=== PATIENT | male | born 1935 | race Two or more races ===

== ENCOUNTER 2023-01-03 13:39 | Inpatient (IN) | payer MEDICARE, OTHER ==
[~2023-01-03] VITALS: Ht 170.2 cm; Wt 79.4 kg
[2023-01-03] MEDS ORDERED: IV NS 0.9% 1,000 ML BAG IV ONE (14:30)
[2023-01-03 15:05] LABS: HEMATOCRIT 37 % (39-51); HEMOGLOBIN 12.3 g/dL (13.5-17.5); MEAN CORPUSCULAR HEMOGLOBIN 30 PG (26.0-33.0); MEAN CORPUSCULAR HGB CONC 33 g/dl (31.0-36.0); MEAN CORPUSCULAR VOLUME 90 fL (80-96); RED BLOOD CELL COUNT(AUTO) 4.12 MIL/uL (4.5-6.0); WHITE BLOOD COUNT (AUTO) 2.7 K/uL (4.3-11.0)
[2023-01-03 15:06] LABS: BASOPHILS % (AUTO) 0.3 % (0.0-2.0); EOSINOPHILS % (AUTO) 0.3 % (0.0-6.0); LYMPHOCYTES # (AUTO) 0.7 K/uL (0.8-4.8); LYMPHOCYTES % (AUTO) 26.7 % (20.0-44.0); MONOCYTES # (AUTO) 0.7 K/uL (0.1-1.30); MONOCYTES % (AUTO) 27.5 % (2.0-12.0); NEUTROPHILS # (AUTO) 1.2 K/uL (1.8-8.9); NEUTROPHILS % (AUTO) 45.2 % (43.0-81.0); PLATELET COUNT (AUTO) 112 K/uL (150-450)
[2023-01-03 15:17] LABS: LACTIC ACID 2.1 mmol/L (0.4-2.0)
[2023-01-03 15:19] LABS: THYROID STIMULATING HORMONE 0.255 uIU/mL (0.358-3.74)
[2023-01-03 15:29] LABS: CALCIUM, SERUM 9.3 mg/dL (8.5-10.1); CARBON DIOXIDE 27 mmol/L (21-32); CHLORIDE 105 mmol/L (98-107); CREATININE 0.9 mg/dL (0.6-1.3); GLUCOSE 202 mg/dL (74-106); POTASSIUM 3.9 mmol/L (3.5-5.1); SODIUM SERUM 139 mmol/L (136-145); UREA NITROGEN, BLOOD 12 mg/dL (7-18)
[2023-01-03] MEDS ORDERED: CEFEPIME 2 GM in IV D5W 50 ML IV ONE (15:30)
[2023-01-03] MEDS ORDERED: VANCOMYCIN 1 GM in IV D5W 250 ML IV ONE (15:30)
[2023-01-03 15:33] LABS: ALCOHOL, BLOOD < 3 mg/dL (0-10)
[2023-01-03 15:40] LABS: INR 1.17 (0.91-1.10); PARTIAL THROMBOPLASTIN TIME 32.3 SEC (24.3-34.3); PROTHROMBIN TIME 12.2 SECS (9.2-11.1)
[2023-01-03] MEDS ORDERED: FAMO40TA7 PO (15:55)
[2023-01-03] MEDS ORDERED: CHOL100043 PO (15:55)
[2023-01-03] MEDS ORDERED: ACET-868 PO ×2 (15:55)
[2023-01-03] MEDS ORDERED: FERR325T23 PO (15:55)
[2023-01-03] MEDS ORDERED: MAGN400O6 PO (15:55)
[2023-01-03] MEDS ORDERED: ATOR20TA PO (15:55)
[2023-01-03] MEDS ORDERED: OMEG1CAP40 PO (15:55)
[2023-01-03] MEDS ORDERED: DUTA0.5C37 PO (15:55)
[2023-01-03] MEDS ORDERED: MIRT-121 PO (15:55)
[2023-01-03] MEDS ORDERED: TRAM50TA2 PO (15:55)
[2023-01-03] MEDS ORDERED: MULT-213 PO (15:55)
[2023-01-03] MEDS ORDERED: DONE10TA11 PO (15:55)
[2023-01-03] MEDS ORDERED: CARV6.25 PO (15:55)
[2023-01-03] MEDS ORDERED: MEMA10TA PO (15:55)
[2023-01-03] MEDS ORDERED: BISA-79 PO (15:55)
[2023-01-03] MEDS ORDERED: TAMS-12 PO (15:55)
[2023-01-03] MEDS ORDERED: DOCU100T2 PO (15:55)
[2023-01-03] MEDS ORDERED: OLAN7.5T3 PO (15:55)
[2023-01-03] MEDS ORDERED: DIVA125C2 PO (15:55)
[2023-01-03] MEDS ORDERED: BISA10SU11 RC (15:55)
[2023-01-03] MEDS ORDERED: NA P133E RC (15:55)
[2023-01-03] MEDS ORDERED: CEFEPIME 2 GM in IV D5W 100 ML IV ONE (16:00)
[2023-01-03 16:12] LABS: APPEARANCE,URINE CLEAR (CLEAR); BILIRUBIN,URINE NEGATIVE (NEGATIVE); BLOOD, URINE NEGATIVE Ery/uL (NEGATIVE); COLOR,URINE YELLOW (YELLOW); KETONES,URINE NEGATIVE (NEGATIVE); LEUKOCYTE ESTERASE ,URINE 1+ (NEGATIVE); NITRITE, URINE NEGATIVE (NEGATIVE); PH,URINE 6.5 (5.0-8.0); PROTEIN,URINE NEGATIVE (NEGATIVE); UGLUCOSE NEGATIVE (NEGATIVE)
[2023-01-03] MEDS ORDERED: IV NS 0.9% 500 ML BAG IV ONE (16:30)
[2023-01-03 16:35] LABS: AMPHETAMINE, URINE NEGATIVE (NEGATIVE); BARBITURATE, URINE NEGATIVE (NEGATIVE); BENZODIAZEPINE, URINE NEGATIVE (NEGATIVE); CANNABINOID, URINE NEGATIVE (NEGATIVE); COCCAINE, URINE NEGATIVE (NEGATIVE); OPIATE, URINE NEGATIVE (NEGATIVE); PHENCYCLIDINE SCREEN,URINE NEGATIVE (NEGATIVE)
[2023-01-03 17:21] LABS: ADD URINE CULTURE YES; BACTERIA,URINE Rare /HPF (None Seen); RBC,URINE 0-2 /HPF (0-2); SQUAMOUS EPITHELIAL CELL,UR None Seen /HPF (None Seen)
[2023-01-03] MEDS ORDERED: MAG HYDROX/AL HYDROX/SIMETH 30 ML UDC PO PRN (17:30)
[2023-01-03] MEDS ORDERED: NA PHOS,M-B/NA PHOS,DI-BA 1 EA ENEMA RC PRN (17:30)
[2023-01-03] MEDS ORDERED: ONDANSETRON HCL/PF 4 MG/2 ML VIAL IVP PRN (17:30)
[2023-01-03] MEDS ORDERED: TRAMADOL HCL 50 MG TABLET PO PRN (17:30)
[2023-01-03] MEDS ORDERED: MAGNESIUM HYDROXIDE 30 ML UDC PO PRN ×2 (17:30)
[2023-01-03] MEDS ORDERED: Z GUARD REMEDY 4 OZ OINT TP PRN (17:30)
[2023-01-03] MEDS ORDERED: ENOXAPARIN SODIUM 30 MG/0.3 ML DISP.SYRIN SQ SCH (17:30)
[2023-01-03] MEDS ORDERED: BISACODYL SUPP (10 MG) 10 MG/SUPP.RECT SUPP.RECT RC PRN (17:30)
[2023-01-03] MEDS ORDERED: ACETAMINOPHEN 325 MG TABLET PO PRN ×2 (17:30)
[2023-01-03 17:59] LABS: LYMPHOCYTES % (MANUAL) 32 % (16-48); MONOCYTES % (MANUAL) 23 % (0-11.0); NEUTROPHILS % (MANUAL) 45 (42-76); PLATELET ESTIMATE DECREASED
[2023-01-03] MEDS ORDERED: OLANZAPINE 2.5 MG TABLET PO SCH (18:00)
[2023-01-03 19:01] LABS: BILIRUBIN,DIRECT 0.1 mg/dL (0.0-0.2); BILIRUBIN,TOTAL 0.3 mg/dL (0.2-1.0)
[2023-01-03 19:24] LABS: LACTIC ACID REFLEX 0.7 mmol/L (0.4-1.9)
[2023-01-03 20:00] VITALS: BP 126/65; TEMP 97.8; O2SAT 98
[2023-01-03] MEDS: DOCUSATE SODIUM 100 MG CAPSULE PO SCH (21:23)
[2023-01-03] MEDS: ENOXAPARIN SODIUM 40 MG/0.4 ML DISP.SYRIN SQ SCH (21:24)
[2023-01-03] MEDS: OLANZAPINE 2.5 MG TABLET PO SCH (21:26)
[2023-01-03] MEDS: TAMSULOSIN 0.4 MG CAP.SR.24H PO SCH (21:27)
[2023-01-04] MEDS: IV NS 0.9% 1,000 ML IV PRN ×2 (00:27→17:10)
[2023-01-04 02:00] VITALS: BP 133/71; TEMP 97.4; O2SAT 93
[2023-01-04 04:00] VITALS: BP 120/67; TEMP 98; O2SAT 97
[2023-01-04 08:00] VITALS: BP 172/85; TEMP 98.2; O2SAT 97
[2023-01-04 08:39] LABS: BASOPHILS % (AUTO) 0.5 % (0.0-2.0); EOSINOPHILS % (AUTO) 0.6 % (0.0-6.0); HEMATOCRIT 38 % (39-51); HEMOGLOBIN 12.4 g/dL (13.5-17.5); LYMPHOCYTES # (AUTO) 0.7 K/uL (0.8-4.8); LYMPHOCYTES % (AUTO) 36.8 % (20.0-44.0); MEAN CORPUSCULAR HEMOGLOBIN 30 PG (26.0-33.0); MEAN CORPUSCULAR HGB CONC 33 g/dl (31.0-36.0); MEAN CORPUSCULAR VOLUME 90 fL (80-96); MONOCYTES # (AUTO) 0.7 K/uL (0.1-1.30); MONOCYTES % (AUTO) 35.9 % (2.0-12.0); NEUTROPHILS # (AUTO) 0.5 K/uL (1.8-8.9); NEUTROPHILS % (AUTO) 26.2 % (43.0-81.0); PLATELET COUNT (AUTO) 108 K/uL (150-450); RED BLOOD CELL COUNT(AUTO) 4.18 MIL/uL (4.5-6.0); RED CELL DISTRIBUTION WIDTH 14.1 % (11.5-15.0)
[2023-01-04 08:50] LABS: CALCIUM, SERUM 8.9 mg/dL (8.5-10.1); CARBON DIOXIDE 28 mmol/L (21-32); CHLORIDE 108 mmol/L (98-107); CREATININE 0.7 mg/dL (0.6-1.3); GLUCOSE 120 mg/dL (74-106); PHOSPHORUS 2.9 mg/dL (2.5-4.9); POTASSIUM 3.3 mmol/L (3.5-5.1); SODIUM SERUM 144 mmol/L (136-145); UREA NITROGEN, BLOOD 7 mg/dL (7-18)
[2023-01-04] MEDS: OLANZAPINE 2.5 MG TABLET PO SCH ×2 (10:20→21:10)
[2023-01-04] MEDS: MIRTAZAPINE 15 MG TABLET PO SCH ×2 (10:20→17:03)
[2023-01-04] MEDS: DIVALPROEX SODIUM 125 MG CAP.SPRINK PO SCH ×3 (10:21→17:02)
[2023-01-04] MEDS: DUTASTERIDE (0.5 MG) 0.5 MG CAPSULE PO SCH (10:21)
[2023-01-04] MEDS: DONEPEZIL 5 MG TABLET PO SCH (10:21)
[2023-01-04] MEDS: MEMANTINE HCL 5 MG TABLET PO SCH (10:22)
[2023-01-04] MEDS: FAMOTIDINE (20 MG) 20 MG TABLET PO SCH (10:22)
[2023-01-04] MEDS: DOCUSATE SODIUM 100 MG CAPSULE PO SCH ×2 (10:22→21:10)
[2023-01-04] MEDS: FERROUS SULFATE (325 MG) 325 MG/TAB TABLET PO SCH ×2 (10:22→17:02)
[2023-01-04] MEDS: CARVEDILOL 6.25 MG TABLET PO SCH ×2 (10:23→17:03)
[2023-01-04] MEDS ORDERED: POTASSIUM CHLORIDE 20 MEQ TAB.PRT.SR PO SCH (10:30)
[2023-01-04 12:55] LABS: BASOPHILS % (MANUAL) 0 % (0.0-2.0); EOSINOPHILS % (MANUAL) 0 % (0-4); LYMPHOCYTES % (MANUAL) 39 % (16-48); MONOCYTES % (MANUAL) 30 % (0-11.0); NEUTROPHILS % (MANUAL) 31 (42-76)
[2023-01-04 12:56] LABS: ANISOCYTOSIS 1+; PLATELET ESTIMATE DECREASED
[2023-01-04 16:00] VITALS: BP 127/65; TEMP 97.8; O2SAT 94
[2023-01-04] MEDS: CEFTRIAXONE 1 G in IV D5W 50 ML IV SCH (16:48)
[2023-01-04 18:55] VITALS: BP 127/65; TEMP 97.8; O2SAT 97
[2023-01-04 20:00] VITALS: BP 123/71; TEMP 98.6; O2SAT 95
[2023-01-04] MEDS: ENOXAPARIN SODIUM 40 MG/0.4 ML DISP.SYRIN SQ SCH (21:09)
[2023-01-04] MEDS: TAMSULOSIN 0.4 MG CAP.SR.24H PO SCH (21:10)
[2023-01-05] MEDS: IV NS 0.9% 1,000 ML IV PRN (06:56)
[2023-01-05 07:30] LABS: BASOPHILS % (AUTO) 0.4 % (0.0-2.0); EOSINOPHILS % (AUTO) 0.4 % (0.0-6.0); HEMATOCRIT 36 % (39-51); HEMOGLOBIN 12.1 g/dL (13.5-17.5); LYMPHOCYTES # (AUTO) 0.8 K/uL (0.8-4.8); LYMPHOCYTES % (AUTO) 41.4 % (20.0-44.0); MEAN CORPUSCULAR HEMOGLOBIN 30 PG (26.0-33.0); MEAN CORPUSCULAR HGB CONC 34 g/dl (31.0-36.0); MEAN CORPUSCULAR VOLUME 90 fL (80-96); MONOCYTES # (AUTO) 0.7 K/uL (0.1-1.30); MONOCYTES % (AUTO) 35.8 % (2.0-12.0); NEUTROPHILS # (AUTO) 0.4 K/uL (1.8-8.9); PLATELET COUNT (AUTO) 98 K/uL (150-450); RED BLOOD CELL COUNT(AUTO) 3.99 MIL/uL (4.5-6.0); RED CELL DISTRIBUTION WIDTH 14.1 % (11.5-15.0)
[2023-01-05 07:42] LABS: WHITE BLOOD COUNT (AUTO) 1.9 K/uL (4.3-11.0)
[2023-01-05] MEDS: FAMOTIDINE (20 MG) 20 MG TABLET PO SCH (07:46)
[2023-01-05 08:00] VITALS: BP 138/81; TEMP 98.1; O2SAT 96
[2023-01-05 08:01] LABS: CALCIUM, SERUM 8.6 mg/dL (8.5-10.1); CREATININE 0.6 mg/dL (0.6-1.3); POTASSIUM 3.5 mmol/L (3.5-5.1)
[2023-01-05] MEDS: DIVALPROEX SODIUM 125 MG CAP.SPRINK PO SCH ×3 (08:53→17:12)
[2023-01-05] MEDS: DOCUSATE SODIUM 100 MG CAPSULE PO SCH ×2 (08:55→21:07)
[2023-01-05] MEDS: DONEPEZIL 5 MG TABLET PO SCH (08:57)
[2023-01-05] MEDS: MEMANTINE HCL 5 MG TABLET PO SCH (08:58)
[2023-01-05] MEDS: OLANZAPINE 2.5 MG TABLET PO SCH ×2 (09:00→21:06)
[2023-01-05] MEDS: FERROUS SULFATE (325 MG) 325 MG/TAB TABLET PO SCH ×2 (09:00→17:12)
[2023-01-05] MEDS: MIRTAZAPINE 15 MG TABLET PO SCH ×2 (09:01→17:11)
[2023-01-05] MEDS: CARVEDILOL 6.25 MG TABLET PO SCH ×2 (09:03→17:12)
[2023-01-05] MEDS: DUTASTERIDE (0.5 MG) 0.5 MG CAPSULE PO SCH (09:04)
[2023-01-05 10:00] LABS: IRON, SERUM 45 ug/dl (50-175); TOTAL IRON BINDING CAPACITY 166 ug/dl (250-450)
[2023-01-05 11:23] LABS: ANISOCYTOSIS 1+; BASOPHILS % (MANUAL) 0 % (0.0-2.0); EOSINOPHILS % (MANUAL) 0 % (0-4); LYMPHOCYTES % (MANUAL) 42 % (16-48); MONOCYTES % (MANUAL) 29 % (0-11.0); NEUTROPHILS % (MANUAL) 29 (42-76); PLATELET ESTIMATE DECREASED
[2023-01-05] MEDS: CEFTRIAXONE 1 G in IV D5W 50 ML IV SCH (15:12)
[2023-01-05 16:00] VITALS: BP 116/67; TEMP 98; O2SAT 96
[2023-01-05] MEDS: TAMSULOSIN 0.4 MG CAP.SR.24H PO SCH (21:07)
[2023-01-05] MEDS: ENOXAPARIN SODIUM 40 MG/0.4 ML DISP.SYRIN SQ SCH (21:08)
[2023-01-06] MEDS: FAMOTIDINE (20 MG) 20 MG TABLET PO SCH (07:53)
[2023-01-06] MEDS ORDERED: ASCORBIC ACID 500 MG TABLET PO SCH (09:00)
[2023-01-06] MEDS ORDERED: MULTIVITAMINS,THERAGRAN 1 UDTAB TABLET PO SCH (09:00)
[2023-01-06] MEDS ORDERED: ZINC SULFATE 220 MG CAPSULE PO SCH (09:00)
[2023-01-06] MEDS: OLANZAPINE 2.5 MG TABLET PO SCH (09:04)
[2023-01-06] MEDS: DONEPEZIL 5 MG TABLET PO SCH (09:04)
[2023-01-06] MEDS: MEMANTINE HCL 5 MG TABLET PO SCH (09:05)
[2023-01-06] MEDS: MIRTAZAPINE 15 MG TABLET PO SCH (09:05)
[2023-01-06] MEDS: FERROUS SULFATE (325 MG) 325 MG/TAB TABLET PO SCH (09:06)
[2023-01-06] MEDS: DIVALPROEX SODIUM 125 MG CAP.SPRINK PO SCH ×2 (09:07→12:08)
[2023-01-06] MEDS: DUTASTERIDE (0.5 MG) 0.5 MG CAPSULE PO SCH (09:08)
[2023-01-06] MEDS: DOCUSATE SODIUM 100 MG CAPSULE PO SCH (09:08)
[2023-01-06 09:18] VITALS: BP 137/92
[2023-01-06] MEDS: CARVEDILOL 6.25 MG TABLET PO SCH (09:18)
== END 2023-01-06 13:28 | DRG 689 ==
LOC: ER 13:39 → TELE1 16:27 → MEDSG1 19:50 → MED 01-04 00:07
PROVIDERS: ADMIT Internal Medicine; ATTEND Internal Medicine
DX: N39.0 Urinary tract infection, site not specified (principal); G93.41 Metabolic encephalopathy; J98.11 Atelectasis; E87.20 Acidosis, unspecified; E86.0 Dehydration; I10 Essential (primary) hypertension; N40.0 Benign prostatic hyperplasia without lower urinary tract symptoms; F03.90 Unspecified dementia, unspecified severity, without behavioral disturbance, psychotic disturbance, mood disturbance, and anxiety; D64.9 Anemia, unspecified; D72.819 Decreased white blood cell count, unspecified; E78.5 Hyperlipidemia, unspecified; F20.9 Schizophrenia, unspecified; K21.9 Gastro-esophageal reflux disease without esophagitis
CPT/HCPCS: 36415; 70450-TC; 71045-TC; 80048-TC; 81001; 82247-TC; 82248-TC; 83540-TC; 83605-TC; 83735-TC; 83880; 84100-TC; 84443-TC; 84484-TC; 85025-TC; 85730-TC; 87040-TC; 87081-TC; 87086-TC; A4223; G0378; G0480; J0692; J0696; J1650; J3370; J7030; J7040; J7060

== ENCOUNTER 2023-08-10 20:09 | Inpatient (IN) | payer MEDICARE, OTHER ==
[~2023-08-10] VITALS: Ht 152.4 cm; Wt 80.7 kg
[~2023-08-10 20:09] MED LIST: ACET-868 PO; ATOR20TA PO; BISA-79 PO; BISA10SU11 RC; CARV6.25 PO; CHOL100043 PO; DIVA125C2 PO; DOCU100T2 PO; DONE10TA11 PO; DUTA0.5C37 PO; FAMO40TA7 PO; FERR325T23 PO; MAGN400O6 PO; MEMA10TA PO; MIRT-121 PO; MULT-213 PO; NA P133E RC; OLAN7.5T3 PO; OMEG1CAP40 PO; TAMS-12 PO; TRAM50TA2 PO
[2023-08-10] MEDS: IV NS 0.9% 1,000 ML BAG IV ONE (20:49)
[2023-08-10 20:53] LABS: BASOPHILS % (AUTO) 0.3 % (0.0-2.0); EOSINOPHILS % (AUTO) 0.5 % (0.0-6.0); HEMATOCRIT 38 % (39-51); HEMOGLOBIN 12.8 g/dL (13.5-17.5); LYMPHOCYTES % (AUTO) 32.1 % (20.0-44.0); MEAN CORPUSCULAR HEMOGLOBIN 31 PG (26.0-33.0); MEAN CORPUSCULAR HGB CONC 34 g/dl (31.0-36.0); MEAN CORPUSCULAR VOLUME 90 fL (80-96); MONOCYTES % (AUTO) 32.5 % (2.0-12.0); NEUTROPHILS % (AUTO) 34.6 % (43.0-81.0); PLATELET COUNT (AUTO) 89 K/uL (150-450)
[2023-08-10 21:01] LABS: APPEARANCE,URINE CLEAR (CLEAR); BILIRUBIN,URINE NEGATIVE (NEGATIVE); BLOOD, URINE NEGATIVE Ery/uL (NEGATIVE); COLOR,URINE YELLOW (YELLOW); KETONES,URINE NEGATIVE (NEGATIVE); LEUKOCYTE ESTERASE ,URINE NEGATIVE (NEGATIVE); NITRITE, URINE NEGATIVE (NEGATIVE); PROTEIN,URINE NEGATIVE (NEGATIVE); UGLUCOSE NEGATIVE (NEGATIVE)
[2023-08-10 21:07] LABS: SERUM AMMONIA 18 umol/L (11-32)
[2023-08-10 21:07] LABS: AMPHETAMINE, URINE NEGATIVE (NEGATIVE); BARBITURATE, URINE NEGATIVE (NEGATIVE); BENZODIAZEPINE, URINE NEGATIVE (NEGATIVE); CANNABINOID, URINE NEGATIVE (NEGATIVE); COCCAINE, URINE NEGATIVE (NEGATIVE); OPIATE, URINE NEGATIVE (NEGATIVE); PHENCYCLIDINE SCREEN,URINE NEGATIVE (NEGATIVE)
[2023-08-10 21:10] LABS: INR 1.13 (0.91-1.10); PARTIAL THROMBOPLASTIN TIME 32.3 SEC (24.3-34.3); PROTHROMBIN TIME 11.9 SECS (9.2-11.1)
[2023-08-10 21:12] LABS: ALANINE AMINOTRANSFERASE 13 U/L (12-78); ALCOHOL, BLOOD < 3 mg/dL (0-10); ALKALINE PHOSPHATASE 59 U/L (46-116); ASPARTATE AMINOTRANSFERASE 10 U/L (15-37); BILIRUBIN,DIRECT 0.1 mg/dL (0.0-0.2); BILIRUBIN,TOTAL 0.3 mg/dL (0.2-1.0); CALCIUM, SERUM 9.1 mg/dL (8.5-10.1); CARBON DIOXIDE 29 mmol/L (21-32); CHLORIDE 106 mmol/L (98-107); CREATININE 1.1 mg/dL (0.6-1.3); GLUCOSE 127 mg/dL (74-106); POTASSIUM 3.7 mmol/L (3.5-5.1); SODIUM SERUM 140 mmol/L (136-145); UREA NITROGEN, BLOOD 16 mg/dL (7-18)
[2023-08-10 21:19] LABS: BAND % (MANUAL) 1 % (0.0-5.0); EOSINOPHILS % (MANUAL) 1 % (0-4); LYMPHOCYTES % (MANUAL) 29 % (16-48); MONOCYTES % (MANUAL) 29 % (0-11.0); NEUTROPHILS % (MANUAL) 40 (42-76); PLATELET ESTIMATE DECREASED
[2023-08-10 21:20] LABS: THYROID STIMULATING HORMONE 0.918 uIU/mL (0.358-3.74)
[2023-08-10 21:24] LABS: SALICYLATE 1.2 mg/dL (2.8-20.0)
[2023-08-10 22:00] VITALS: BP 166/71; TEMP 98.2; O2SAT 97
[2023-08-10] MEDS ORDERED: ONDANSETRON HCL/PF 4 MG/2 ML VIAL IVP PRN (22:00)
[2023-08-10] MEDS ORDERED: MORPHINE SULFATE INJ 2 MG/ML DISP.SYRIN IV PRN (22:00)
[2023-08-10] MEDS ORDERED: ACETAMINOPHEN 325 MG TABLET PO PRN (22:00)
[2023-08-10] MEDS ORDERED: hydrALAZINE HCL IV 20 MG VIAL IV PRN (22:00)
[2023-08-10] MEDS: ATORVASTATIN 10 MG TABLET PO SCH (22:31)
[2023-08-10] MEDS: TAMSULOSIN 0.4 MG CAP.SR.24H PO SCH (22:31)
[2023-08-10] MEDS: OLANZAPINE 5 MG TABLET PO SCH (22:35)
[2023-08-11] VITALS: BP 149/68; TEMP 98; O2SAT 97
[2023-08-11 04:00] VITALS: BP 121/55; TEMP 98; O2SAT 97
[2023-08-11 06:36] LABS: BASOPHILS % (AUTO) 0.3 % (0.0-2.0); EOSINOPHILS % (AUTO) 0.7 % (0.0-6.0); HEMATOCRIT 38 % (39-51); HEMOGLOBIN 12.9 g/dL (13.5-17.5); LYMPHOCYTES # (AUTO) 0.8 K/uL (0.8-4.8); LYMPHOCYTES % (AUTO) 34.6 % (20.0-44.0); MEAN CORPUSCULAR HEMOGLOBIN 31 PG (26.0-33.0); MEAN CORPUSCULAR HGB CONC 34 g/dl (31.0-36.0); MEAN CORPUSCULAR VOLUME 91 fL (80-96); MONOCYTES # (AUTO) 0.7 K/uL (0.1-1.30); MONOCYTES % (AUTO) 31.4 % (2.0-12.0); NEUTROPHILS # (AUTO) 0.8 K/uL (1.8-8.9); PLATELET COUNT (AUTO) 81 K/uL (150-450); RED BLOOD CELL COUNT(AUTO) 4.21 MIL/uL (4.5-6.0); RED CELL DISTRIBUTION WIDTH 15.1 % (11.5-15.0); WHITE BLOOD COUNT (AUTO) 2.3 K/uL (4.3-11.0)
[2023-08-11 06:50] LABS: ALBUMIN 2.8 g/dL (3.4-5.0); BILIRUBIN,TOTAL 0.3 mg/dL (0.2-1.0); CALCIUM, SERUM 8.8 mg/dL (8.5-10.1); CREATININE 0.8 mg/dL (0.6-1.3); PHOSPHORUS 3.8 mg/dL (2.5-4.9); POTASSIUM 3.6 mmol/L (3.5-5.1); TOTAL PROTEIN, SERUM 6.6 g/dL (6.4-8.2)
[2023-08-11] MEDS: DOCUSATE SODIUM LIQ 100 MG/10 ML UDC PO SCH (08:45)
[2023-08-11] MEDS: POLYETHYLENE GLYCOL 3350 17 GM POWD.PACK PO SCH (08:45)
[2023-08-11] MEDS: DONEPEZIL 5 MG TABLET PO SCH (08:45)
[2023-08-11] MEDS: CHOLECALCIFEROL 1,000 UNIT TABLET (VIT D3) PO SCH (08:47)
[2023-08-11] MEDS: MIRTAZAPINE 15 MG TABLET PO SCH (08:47)
[2023-08-11] MEDS: MEMANTINE HCL 5 MG TABLET PO SCH (08:47)
[2023-08-11] MEDS: DIVALPROEX SODIUM 125 MG CAP.SPRINK PO SCH (08:47)
[2023-08-11] MEDS: DUTASTERIDE (0.5 MG) 0.5 MG CAPSULE PO SCH (08:48)
[2023-08-11] MEDS: CARVEDILOL 6.25 MG TABLET PO SCH (08:48)
[2023-08-11] MEDS: FERROUS SULFATE (325 MG) 325 MG/TAB TABLET PO SCH (08:48)
[2023-08-11] MEDS ORDERED: ASCO-352 PO (10:27)
[2023-08-11] MEDS ORDERED: NALO4SPR BNOSTRILS (10:27)
[2023-08-11] MEDS ORDERED: ZINC220C6 PO (10:27)
[2023-08-11] MEDS ORDERED: BLOO-668 IN (10:27)
[2023-08-11] MEDS: HEPARIN SODIUM, PORCINE 5000 UNITS/1 ML VIAL SQ SCH (10:57)
[2023-08-11 11:05] LABS: ANISOCYTOSIS 1+; BASOPHILS % (MANUAL) 0 % (0.0-2.0); EOSINOPHILS % (MANUAL) 0 % (0-4); LYMPHOCYTES % (MANUAL) 40 % (16-48); MONOCYTES % (MANUAL) 26 % (0-11.0); NEUTROPHILS % (MANUAL) 34 (42-76); PLATELET ESTIMATE DECREASED
[2023-08-11 11:42] VITALS: BP 148/71; TEMP 97.9; O2SAT 95
[2023-08-11 16:00] VITALS: BP 156/84; TEMP 98.2
[2023-08-11 20:00] VITALS: BP 138/81; TEMP 98.4; O2SAT 96
[2023-08-12] VITALS: BP 140/83; TEMP 97.3; O2SAT 95
[2023-08-12 06:52] LABS: ALBUMIN 3.1 g/dL (3.4-5.0); BILIRUBIN,TOTAL 0.4 mg/dL (0.2-1.0); CALCIUM, SERUM 9.1 mg/dL (8.5-10.1); CREATININE 0.7 mg/dL (0.6-1.3); MAGNESIUM 2.2 mg/dL (1.8-2.4); PHOSPHORUS 3.5 mg/dL (2.5-4.9); POTASSIUM 3.5 mmol/L (3.5-5.1); TOTAL PROTEIN, SERUM 7.1 g/dL (6.4-8.2)
[2023-08-12 06:54] LABS: BASOPHILS % (AUTO) 0.2 % (0.0-2.0); EOSINOPHILS % (AUTO) 0.6 % (0.0-6.0); HEMATOCRIT 40 % (39-51); HEMOGLOBIN 13.3 g/dL (13.5-17.5); LYMPHOCYTES % (AUTO) 36.1 % (20.0-44.0); MEAN CORPUSCULAR HEMOGLOBIN 30 PG (26.0-33.0); MEAN CORPUSCULAR HGB CONC 34 g/dl (31.0-36.0); MEAN CORPUSCULAR VOLUME 91 fL (80-96); MONOCYTES # (AUTO) 0.9 K/uL (0.1-1.30); MONOCYTES % (AUTO) 33.6 % (2.0-12.0); NEUTROPHILS # (AUTO) 0.8 K/uL (1.8-8.9); NEUTROPHILS % (AUTO) 29.5 % (43.0-81.0); PLATELET COUNT (AUTO) 92 K/uL (150-450); RED BLOOD CELL COUNT(AUTO) 4.38 MIL/uL (4.5-6.0); RED CELL DISTRIBUTION WIDTH 15.1 % (11.5-15.0); WHITE BLOOD COUNT (AUTO) 2.7 K/uL (4.3-11.0)
[2023-08-12 08:00] VITALS: BP 139/77; TEMP 97.9; O2SAT 96
[2023-08-12 11:59] LABS: ANISOCYTOSIS 1+; BAND % (MANUAL) 2 % (0.0-5.0); BASOPHILS % (MANUAL) 0 % (0.0-2.0); EOSINOPHILS % (MANUAL) 0 % (0-4); LYMPHOCYTES % (MANUAL) 33 % (16-48); MONOCYTES % (MANUAL) 29 % (0-11.0); NEUTROPHILS % (MANUAL) 36 (42-76); PLATELET ESTIMATE DECREASED; TEAR DROP CELLS 1+
[2023-08-12 12:00] VITALS: BP_SYST 138; BP_SYST 139; BP_DIAS 87; TEMP 98.8; O2SAT 95
[2023-08-12 16:00] VITALS: BP 116/70; TEMP 98.2; O2SAT 95
[2023-08-12 20:00] VITALS: BP 118/73; TEMP 98.6; O2SAT 94
[2023-08-13 08:00] VITALS: BP 127/76; TEMP 97.1; O2SAT 94
[2023-08-13 15:19] VITALS: BP 123/71; TEMP 97.5; O2SAT 95
== END 2023-08-13 15:30 | DRG 641 ==
LOC: ER 20:19 → MED 21:41 → TELE 22:03 → MED 08-13 09:17
DX: R62.7 Adult failure to thrive (principal); F20.0 Paranoid schizophrenia; G93.49 Other encephalopathy; N40.0 Benign prostatic hyperplasia without lower urinary tract symptoms; E78.5 Hyperlipidemia, unspecified; I10 Essential (primary) hypertension; D64.9 Anemia, unspecified; F03.90 Unspecified dementia, unspecified severity, without behavioral disturbance, psychotic disturbance, mood disturbance, and anxiety; K21.9 Gastro-esophageal reflux disease without esophagitis; K59.00 Constipation, unspecified; Z87.440 Personal history of urinary (tract) infections; Z68.34 Body mass index [BMI] 34.0-34.9, adult
CPT/HCPCS: 36415; 70450-TC; 71045-TC; 80048-TC; 80053-TC; 80076-TC; 82140-TC; 83735-TC; 84100-TC; 84443-TC; 84484-TC; 85025-TC; 85730-TC; 87081-TC; 97116-TC; 97530-TC; G0378; G0480; J1644; J7030